=== PATIENT | female | born 1990 | race African-American/Black ===

== ENCOUNTER 2021-06-13 17:37 | Emergency (ER) | payer MEDICAID ==
[~2021-06-13] VITALS: Ht 175.3 cm; Wt 87.1 kg
[2021-06-13] MEDS ORDERED: TRAZ-182 PO (17:56)
[2021-06-13] MEDS ORDERED: DULO60CA45 PO (17:56)
[2021-06-13] MEDS ORDERED: SPIR50TA5 PO (17:56)
[2021-06-13 18:15] LABS: HEMATOCRIT 38.7 % (31.2-41.9); MEAN CORPUSCULAR HEMOGLOBIN 32.6 uug (24.7-32.8); MEAN CORPUSCULAR VOLUME 93.4 fL (75.5-95.3); PLATELET COUNT (AUTO) 393 K/uL (179-408)
[2021-06-13 18:18] LABS: CARBON DIOXIDE 27 mmol/L (21-32); CHLORIDE 103 mmol/L (98-107); CREATININE 0.7 mg/dL (0.6-1.3); GLUCOSE 119 mg/dL (74-106); POTASSIUM 3.9 mmol/L (3.5-5.1); UREA NITROGEN, BLOOD 9 mg/dL (7-18)
[2021-06-13 18:24] LABS: LIPASE 105 U/L (73-393)
[2021-06-13 18:32] LABS: ALANINE AMINOTRANSFERASE 31 U/L (14-59); ALKALINE PHOSPHATASE 80 U/L (50-136); ASPARTATE AMINOTRANSFERASE 18 U/L (15-37); BILIRUBIN,DIRECT 0.1 mg/dL (0.0-0.2); BILIRUBIN,TOTAL 0.2 mg/dL (0.2-1.0); TOTAL PROTEIN, SERUM 7.2 g/dL (6.4-8.2)
--- NOTE | 2021-06-13 18:48 | NUR ---
Lights dimmed per patient's request, pending results and disposition.
[2021-06-13] MEDS ORDERED: MECLIZINE HCL 25 MG TABLET PO ONE (19:30)
[2021-06-13] MEDS ORDERED: ONDANSETRON 4 MG/2 ML VIAL IV ONE (19:30)
[2021-06-13] MEDS ORDERED: KETOROLAC TROMETHAMINE 30 MG INJ IVP ONE (19:30)
[2021-06-13] MEDS ORDERED: IV NS 1000 ML 1,000 ML IV ONE (19:30)
[2021-06-13] MEDS ORDERED: ONDANSETRON 4 MG/2 ML VIAL ONE (19:44)
[2021-06-13] MEDS ORDERED: KETOROLAC TROMETHAMINE 30 MG INJ ONE (19:44)
[2021-06-13] MEDS ORDERED: MECLIZINE HCL 25 MG TABLET ONE (19:44)
--- NOTE | 2021-06-13 20:00 | NUR ---
PATIENT RESTING ON GURNY WITH NO DISTRESS NOTED.
--- NOTE | 2021-06-13 22:49 | NUR ---
IV removed. Catheter intact and site benign. Pressure and 4x4 gauze applied to site. No bleeding noted.
[2021-06-13 22:51] VITALS: BP 144/90
--- NOTE | 2021-06-13 23:00 | NUR ---
As patient was walking out room 4b, she felt light head, flush and weak. Patient was helped back to [facility] and laid down. BP was 148/95, HR 89, SPO2 99.
--- NOTE | 2021-06-13 23:10 | NUR ---
Tolerated meal with no distress noted.
--- NOTE | 2021-06-13 23:29 | NUR ---
Dr Connors into re eval patient.
[2021-06-13] MEDS ORDERED: DOCU-141 PO (23:39)
--- NOTE | 2021-06-13 23:45 | NUR ---
Patient discharged to home in stable condition. Written and verbal after care instructions given. Patient verbalizes understanding of instructions. Stressed follow up or return to ER for worsening s/s.
== END 2021-06-13 23:46 | disposition home or self-care (01) ==
LOC: ER 17:40
DX: R07.9 Chest pain, unspecified (principal); Z82.49 Family history of ischemic heart disease and other diseases of the circulatory system; E25.0 Congenital adrenogenital disorders associated with enzyme deficiency; I10 Essential (primary) hypertension; F32.A Depression, unspecified
CPT/HCPCS: 36415; 71045; 80048; 80076; 83690; 83880; 84484 ×2; 84702; 85025; 85379; 93005 ×2; 96361; 96374; 96375; 99285; J1885; J2405; A4663; J7030; J8597